=== PATIENT | male | born 1995 | race African-American/Black ===

== ENCOUNTER 2020-04-15 16:13 | Emergency (ER) | payer SELFPAY ==
[~2020-04-15] VITALS: Ht 167.6 cm; Wt 153.6 kg
[2020-04-15 16:18] VITALS: Ht 167.6 cm; Wt 153.6 kg
[2020-04-15] MEDS ORDERED: BUTALB-APAP-CA1 EACH PO (17:46)
[2020-04-15 18:23] VITALS: BP 130/62
== END 2020-04-15 18:23 | disposition home or self-care (01) ==
LOC: D.ER 16:13
DX: T59.91XA Toxic effect of unspecified gases, fumes and vapors, accidental (unintentional), initial encounter (principal); Y92.9 Unspecified place or not applicable; R05 Cough; R06.02 Shortness of breath